=== PATIENT | female | born 1950 | race Caucasian/White ===

== ENCOUNTER 2017-04-23 11:26 | Outpatient (CLI) | payer MEDICARE, OTHER ==
--- NOTE | 2017-04-23 19:14 | CT Report ---
CT BRAIN WITHOUT CONTRAST: 04/23/2017 CLINICAL INDICATION: Vertigo, nausea. TECHNIQUE: Axial CT images of the brain were obtained without intravenous contrast. No previous CT is available for comparison. FINDINGS: The ventricles and sulci are normal in size, shape, and configuration. The basilar cister ns are patent. There is no evidence of intracranial hemorrhage, mass effect, or midline shift. The visualized orbital contents and paranasal sinuses are unremarkable. IMPRESSION: NORMAL CT OF THE BRAIN WITHOUT CONTRAST. In accordance with CT protocol optimization, one or more of the following dose reduction techniques w ere utilized for this exam: automated exposure control, adjustment of mA and/or KV based on patient size, or use of iterative reconstructive technique. JOB #: [id number] EXT JOB #:[id number]
--- NOTE | 2017-04-24 13:04 | Ultrasound Report ---
CAROTID DUPLEX: 04/23/2017 CLINICAL INDICATION: Nausea. TECHNIQUE: Real-time sonographic vascular imaging was performed by the food service through the carotid arteries utilizing both color-flow and Doppler spectral analysis. Multiple canvas products sales representative static images were saved for review. Vessel PSV cm/sec 2D Plaque Estimate % EDV cm/sec ICA/CCA PSV % Stenosis RCCA Prox 78 -- RCCA Dist 71 21 -- RECA 88 -- RT BULB 62 -- 21 0.87 LORENZA Prox 85 -- 30 1.20 LORENZA Mid 72 -- 32 1.01 LORENZA Dist 107 -- 40 1.51 RVA 43 RVA flow direction: Antegrade. Vessel PSV cm/sec 2D Plaque Estimate % EDV cm/sec ICA/CCA PSV % Stenosis LCCA Prox 120 -- LCCA Dist 82 24 -- LECA 83 -- LFT BULB 78 -- 21 0.95 LICA Prox 79 -- 29 0.96 LICA Mid 106 -- 40 1.29 LICA Dist 108 -- 47 1.32 LVA 50 LVA flow direction: Antegrade. Velocity criteria are extrapolated from diameter data as defined by the Society of Radiologists in Ultrasound Consensus Conference Radiology 2003; 229; 340-346. Degree of Stenosis % ICA PSV cm/sec Plaque Estimate % ICA/CCA RSV Ratio ICA EDV cm/sec Normal < 125 None < 2.0 < 40 <50 < 125 < 50 < 2.0 < 40 50-69 125 - 130 >/= 50 2.0 - 4.0 40 - 100 >/= 70 but less than near occlusion > 230 >/= 50 > 4.0 > 100 Near occlusion High, low, or undetectable Visible lumen Variable Variable Total occlusion Undetectable No detectable lumen Not applicable Not applicable FINDINGS RIGHT: There is no plaquing in the right carotid bifurcation or proximal right internal carotid artery. There is no evidence of a hemodynamically significant stenosis. LEFT: There is minimal plaquing in the left carotid bifurcation. There is no evidence of a hemodynamically significant carotid stenosis. The vertebral arteries demonstrate antegrade flow bilaterally. IMPRESSION: MINIMAL PLAQUING. NO EVIDENCE OF A HEMODYNAMICALLY SIGNIFICANT CAROTID STENOSIS. MTDD
== END 2017-04-23 11:27 | disposition home or self-care (01) ==
LOC: DI 11:26
PROVIDERS: ATTEND Nurse Practitioner Family
DX: R42 Dizziness and giddiness (principal); R11.0 Nausea
CPT/HCPCS: 70450; 93880

== ENCOUNTER 2018-05-22 13:30 | Outpatient (CLI) | payer MEDICARE, OTHER ==
--- NOTE | 2018-05-25 14:19 | Mammography Report ---
Reason: SCREENING MAMMO Procedure Date: 05/22/2018 Accession Number: [id number] / [id number] Procedure: SAAD - Screening Mammo Dig Bilat CPT Code: FULL RESULT: EXAM: Screening Mammo Dig Bilat DATE: 05/22/2018 2:16 PM CLINICAL HISTORY: Routine screening TECHNIQUE: Bilateral CC and MLO views were obtained. COMPARISON: 11/08/2015, 10/23/2015 FINDINGS: There are scattered fibroglandular densities. There is no interval change. Stable asymmetric density superior right breast MLO projection. No suspicious masses, clustered microcalcifications, or regions of architectural distortion are identified. IMPRESSION: Benign findings RECOMMENDATION: Routine annual screening unless otherwise clinically indicated. BIRADS CATEGORY 2: Benign findings STANDARD QUALIFYING STATEMENTS: 1. This examination was reviewed with the aid of Computer-Aided Detection (CAD). 2. A negative or benign imaging report should not delay biopsy if clinically suspicious findings are present. Consider surgical consultation if warrented. More than 5% of cancers are not identified by imaging. 3. Dense breasts may obscure an underlying neoplasm.
== END 2018-05-22 13:31 | disposition home or self-care (01) ==
LOC: DI 13:30
PROVIDERS: ATTEND Nurse Practitioner Family
DX: Z12.31 Encounter for screening mammogram for malignant neoplasm of breast (principal)
CPT/HCPCS: 77067

== ENCOUNTER 2018-06-14 09:07 | Outpatient (CLI) | payer MEDICARE, OTHER | END 2018-06-14 09:08 | disposition critical access hospital (66) | LOC: EMS 09:07 | PROVIDERS: ATTEND Surgery | DX: R42 Dizziness and giddiness (principal); R09.89 Other specified symptoms and signs involving the circulatory and respiratory systems | CPT/HCPCS: A0425; A0427 ==

== ENCOUNTER 2018-06-14 09:44 | Observation (INO) | payer MEDICARE, OTHER ==
[2018-06-14] MEDS ORDERED: SODIUM CHLORIDE 0.9% 1,000 ML IV ONE (10:11)
--- NOTE | 2018-06-14 10:12 | ED Physician Documentation ---
History of Present Illness - Stated complaint Stated Complaint: DIZZY - Chief complaint Chief Complaint: Cardiac - Additonal information Additional information: 68-year-old female was brought to the emergency department for evaluation of a episode of dizziness which occurred today while at [employer]. The patient reports significant lightheadedness which started suddenly while standing. The patient's noticed that she was very pale appearing and diaphoretic. The patient denies chest pain or palpitations during the event. No actual syncopal episode but the patient felt like she was near syncope. EMS was called. EMS found that the patient was having a low heart rate with long pauses. Presently, the patient feels closer to her baseline and her dizziness has greatly improved. No triggering factors. Symptoms initially were described as severe and currently are mild. No other associated symptoms. Symptoms improved on their own Review of Systems Constitutional: denies: Fever Eyes: denies: Discharge Ears: denies: Ear pain, Drainage/discharge Nose: denies: Congestion Throat: denies: Sore throat Cardiac: denies: Chest pain / pressure, Palpitations, Pedal edema Respiratory: denies: Cough GI: denies: Abdominal Pain, Nausea, Vomiting : denies: Dysuria Skin: denies: Rash Musculoskeletal: denies: Neck pain Neurologic: reports: Near syncope. 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 INTRANET: Hysterectomy - Present Medications Home Medications: Ambulatory Orders Medication Instructions Recorded Confirmed Loratadine [Claritin] 10 mg PO 06/14/18 - Allergies Allergies/Adverse Reactions: Allergies Allergy/AdvReac Type Severity Reaction Status Date / Time acetaminophen [From Vicodin] AdvReac Nausea Verified 06/14/18 10:17 hydrocodone [From Vicodin] AdvReac Nausea Verified 06/14/18 10:17 - Social History Does the pt smoke?: No Smoking Status: Never smoker Does the pt drink ETOH?: No Does the pt have substance abuse?: No - Immunizations Immunizations are current?: Yes PD ED PE NORMAL - General General: Alert and oriented X 3, No acute distress - HEENT HEENT: Atraumatic, PERRL, EOMI, Ears normal - Neck Neck: Supple, no meningeal sign - Cardiac Cardiac: RRR, Strong equal pulses - Respiratory Respiratory: No respiratory distress - Abdomen Abdomen: Normal bowel sounds, Soft, Non tender - Derm Derm: Normal color - Extremities Extremities: No deformity, Normal ROM s pain, No edema - Neuro Neuro: Alert and oriented X 3, 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 2-12 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, No motor deficit, Normal speech - Psych Psych: Normal affect Results - Vitals Vitals: Vital Signs - 24 hr 06/14/18 06/14/18 06/14/18 09:47 09:49 10:00 Temperature 36.5 C Heart Rate 51 L Heart Rate [ 58 L Sitting] Heart Rate [ 57 L Standing] Heart Rate [ 54 L Supine] Respiratory 16 Rate Blood Pressure 117/93 H Blood Pressure 115/58 L [Sitting] Blood Pressure 112/71 [Standing] Blood Pressure 107/59 L [Supine] O2 Saturation 97 06/14/18 11:26 Temperature Heart Rate 58 L Heart Rate [ Sitting] Heart Rate [ Standing] Heart Rate [ Supine] Respiratory 17 Rate Blood Pressure 116/59 L Blood Pressure [Sitting] Blood Pressure [Standing] Blood Pressure [Supine] O2 Saturation 98 Oxygen O2 Source Room air - EKG (time done) 09:55 Rate: Rate (enter#) Rhythm: Sinus bradycardia [place]: Normal Intervals: Normal NC, QRS normal QRS: Normal Ischemia: Non specific changes - Labs Labs: Laboratory Tests 06/14/18 06/14/18 06/14/18 10:25 10:25 10:25 WBC 9.2 RBC 4.25 Hgb 13.6 Hct 39.2 MCV 92.3 MCH 32.0 H MCHC 34.6 RDW 13.1 Plt Count 184 MPV 8.5 Neut # (Auto) 7.8 H Lymph # (Auto) 0.9 L [place] # (Auto) 0.4 Eos # (Auto) 0.1 Baso # (Auto) 0.0 Absolute Nucleated RBC 0.00 Nucleated RBC % 0.0 Sodium 140 Potassium 4.1 Chloride 107 Carbon Dioxide 26 Anion Gap 7.0 BUN 16 Creatinine 0.5 Estimated GFR (MDRD) 123 Glucose 103 H Calcium 8.4 L Total Bilirubin 0.8 AST 23 ALT 25 Alkaline Phosphatase 57 Troponin I < 0.04 Total Protein 6.4 L Albumin 3.8 Globulin 2.6 Albumin/Globulin Ratio 1.5 Lipase 43 Urine Color Urine Clarity Urine pH Ur Specific [place] Urine Protein Urine Glucose (UA) Urine Ketones Urine Occult Blood Urine Nitrite Urine Bilirubin Urine Urobilinogen Ur Leukocyte Esterase Ur Microscopic Review Urine Culture Comments Salicylates < 6.0 Urine Opiates Screen Ur Oxycodone Screen Urine Methadone Screen Ur Propoxyphene Screen Acetaminophen < 10 L Ur Barbiturates Screen Ur Tricyclics Screen Ur Phencyclidine Scrn Ur Amphetamine Screen U Methamphetamines Scrn U Benzodiazepines Scrn Urine Cocaine Screen U Cannabinoids Screen Ethyl Alcohol < 5.0 06/14/18 11:20 WBC RBC Hgb Hct MCV MCH MCHC RDW Plt Count MPV Neut # (Auto) Lymph # (Auto) [place] # (Auto) Eos # (Auto) Baso # (Auto) Absolute Nucleated RBC Nucleated RBC % Sodium Potassium Chloride Carbon Dioxide Anion Gap BUN Creatinine Estimated GFR (MDRD) Glucose Calcium Total Bilirubin AST ALT Alkaline Phosphatase Troponin I Total Protein Albumin Globulin Albumin/Globulin Ratio Lipase Urine Color YELLOW Urine Clarity CLEAR Urine pH 6.5 Ur Specific [place] 1.015 Urine Protein NEGATIVE Urine Glucose (UA) NEGATIVE Urine Ketones NEGATIVE Urine Occult Blood NEGATIVE Urine Nitrite NEGATIVE Urine Bilirubin NEGATIVE Urine Urobilinogen 0.2 (NORMAL) Ur Leukocyte Esterase NEGATIVE Ur Microscopic Review NOT INDICATED Urine Culture Comments NOT INDICATED Salicylates Urine Opiates Screen NEGATIVE Ur Oxycodone Screen NEGATIVE Urine Methadone Screen NEGATIVE Ur Propoxyphene Screen NEGATIVE Acetaminophen Ur Barbiturates Screen NEGATIVE Ur Tricyclics Screen NEGATIVE Ur Phencyclidine Scrn NEGATIVE Ur Amphetamine Screen NEGATIVE U Methamphetamines Scrn NEGATIVE U Benzodiazepines Scrn NEGATIVE Urine Cocaine Screen NEGATIVE U Cannabinoids Screen NEGATIVE Ethyl Alcohol - Rads (name of study) CXR Radiology: Final report received, See rad report PD MEDICAL DECISION MAKING - ED course ED course: The patient's symptoms are concerning especially since she was found to have a low heart rate during the episode. The patient will require further workup and evaluation in the hospital. The findings and plan were discussed with the patient who understands and agrees to the plan. The case was discussed with the hospitalist Dr. Florence who accepts the patient onto her service. Departure - Departure Disposition: ED Place in Observation Clinical Impression: Near syncope, Bradycardia Condition: Good
[2018-06-14 10:28] LABS: BASOPHILS % (AUTO) 0.3 %; EOSINOPHILS # (AUTO) 0.1 10^3/uL (0.0-0.7); EOSINOPHILS % (AUTO) 0.8 %; HGB - HEMOGLOBIN 13.6 g/dL (12.0-16.0); LYMPHOCYTES # (AUTO) 0.9 10^3/uL (1.5-3.5); LYMPHOCYTES % (AUTO) 9.3 %; MEAN CORPUSCULAR HGB CONC 34.6 g/dL (32.0-36.0); MEAN CORPUSCULAR VOLUME 92.3 fL (81.0-99.0); MEAN PLATELET VOLUME 8.5 fL (7.9-10.8); MONOCYTES # (AUTO) 0.4 10^3/uL (0.0-1.0); MONOCYTES % (AUTO) 4.4 %; NEUTROPHILS # (AUTO) 7.8 10^3/uL (1.5-6.6); NEUTROPHILS % (AUTO) 85.2 %; PLT - PLATELET COUNT 184 10^3/uL (130-450); RED BLOOD COUNT 4.25 10^6/uL (4.20-5.40); RED CELL DISTRIBUTION WIDTH 13.1 % (12.0-15.0); WHITE BLOOD COUNT 9.2 x10^3/uL (4.8-10.8)
[2018-06-14 10:47] LABS: ACETAMINOPHEN < 10 ug/mL (10-30); ALBUMIN 3.8 g/dL (3.2-5.5); ALBUMIN/GLOBULIN RATIO 1.5 (1.0-2.2); ALKALINE PHOSPHATASE 57 IU/L (42-121); ALT ALANINE AMINOTRANSFERASE 25 IU/L (10-60); AST ASPARTATE AMINOTRANSFERASE 23 IU/L (10-42); BILIRUBIN,TOTAL 0.8 mg/dL (0.2-1.0); BUN - BLOOD UREA NITROGEN 16 mg/dL (6-20); CALCIUM 8.4 mg/dL (8.5-10.3); CARBON DIOXIDE - CO2 26 mmol/L (21-32); CHLORIDE 107 mmol/L (101-111); CREATININE 0.5 mg/dL (0.4-1.0); GFR - MDRD 123 (>89); GLUCOSE 103 mg/dL (70-100); LIPASE 43 U/L (22-51); SALICYLATE < 6.0 mg/dL; SODIUM 140 mmol/L (135-145); TOTAL PROTEIN 6.4 g/dL (6.7-8.2)
[2018-06-14 11:25] LABS: MUDS CUTOFF CONCENTRATIONS CUTOFF CONC BELOW:
[2018-06-14 11:27] LABS: BILIRUBIN,URINE NEGATIVE (NEGATIVE); GLUCOSE, URINE (UA) NEGATIVE (NEGATIVE); KETONES,URINE (UA) NEGATIVE (NEGATIVE); LEUKOCYTE ESTERASE, URINE NEGATIVE (NEGATIVE); NITRITE,URINE NEGATIVE (NEGATIVE); OCCULT BLOOD,URINE NEGATIVE (NEGATIVE); PH,URINE 6.5 PH (5.0-7.5); PROTEIN,URINE NEGATIVE (NEGATIVE); UROBILINOGEN,URINE 0.2 (NORMAL) E.U./dL (NORMAL)
[2018-06-14 11:29] LABS: CLARITY,URINE CLEAR (CLEAR)
[2018-06-14 11:37] LABS: AMPHETAMINE SCREEN,URINE NEGATIVE (NEGATIVE); BENZODIAZEPINES SCREEN, URINE NEGATIVE (NEGATIVE); COCAINE SCREEN URINE NEGATIVE (NEGATIVE); METHADONE SCREEN, URINE NEGATIVE (NEGATIVE); METHAMPHETAMINES SCREEN, URINE NEGATIVE (NEGATIVE); OPIATE SCREEN, URINE NEGATIVE (NEGATIVE); OXYCODONE SCREEN, URINE NEGATIVE (NEGATIVE); PROPOXYPHENE SCREEN, URINE NEGATIVE (NEGATIVE); TRICYCLIC ANTIDEPRESSANT,URINE NEGATIVE (NEGATIVE)
--- NOTE | 2018-06-14 11:43 | XRAY Report ---
Reason: dizzy, near syncope Procedure Date: 06/14/2018 Accession Number: [id number] / [id number] Procedure: XR - Chest 2 View X-Ray CPT Code: 70631 FULL RESULT: EXAM: CHEST RADIOGRAPHY EXAM DATE: 06/14/2018 11:04 AM. CLINICAL HISTORY: Dizziness and giddiness. Presyncope. COMPARISON: None. TECHNIQUE: 2 views. FINDINGS: Lungs/Pleura: No focal opacities evident. No pleural effusion. No pneumothorax. Normal volumes. Mediastinum: Heart and mediastinal contours are unremarkable. Other: None. IMPRESSION: Normal 2-view chest radiography. RADIA
[2018-06-14] MEDS ORDERED: SODIUM CHLORIDE FLUSH 0.9% 10 ML SYRINGE IVP PRN (12:01)
[2018-06-14] MEDS ORDERED: ONDANSETRON ODT 4 MG TABLET TL PRN (12:01)
[2018-06-14] MEDS ORDERED: ACETAMINOPHEN 325 MG TABLET PO PRN (12:01)
[2018-06-14] MEDS ORDERED: ONDANSETRON 4 MG/2 ML VIAL IVP PRN (12:01)
--- NOTE | 2018-06-14 12:06 | HISTORY & PHYSICAL EXAMINATION ---
Chief Complaint - Chief Complaint Chief Complaint: Near syncope with bradycardia and diaphoresis History of Present Illness - Admitted From Admitted From:: Home>ER - History [facility]bt[facility] History obtained from: Patient and medical records Exam Limitations: none. - History of Present Illness HPI Comment/Other: She is an otherwise healthy white female who takes Claritin for allergies and vertigo. But today while standing in [employer], she suddenly became lightheaded, diaphoretic. This is different from her vertigo where her head spins. She almost passed out. She has only been standing a few minutes. It's a [employer] service so you stand, sit , kneel (ie change position) every few minutes. She has not had any new illness. No GI complaints. No stress. EMS was called and her heart rate was in the 30s with long sinus pauses. She was sinus rhythm. Since being in the emergency room her heart rate is 51-58 with sinus rhythm. Blood pressure is 117/93. Oxygenating well on room air. She is now brought in for observation to monitor her heart rate, monitor for arrhythmia, and get an echocardiogram. There is no family history of arrhythmias. She does not take any medications [id number] other than the Claritin. In reviewing her blood pressure from her primary care provider office in 2015 she was 125/59. Pulse rate was from 60-74.She just had a well woman exam in May with Gina Johnson. Everything was fine then. History - Past Medical History Cardiovascular: reports: None Respiratory: reports: None Neuro: reports: None Endocrine/Autoimmune: reports: None GI: reports: Colon polyps (Colonoscopy done in 2007, 2015. With October 2015 colonoscopy normal colon, internal hemorrhoids.), Other (Abnormal liver function studies in August 2015 resulted in abdominal ultrasound. Fatty liver.) CHIEF LOAD DISPATCHER: reports: Other (Fibroids and menorrhagia resulted in total abdominal hysterectomy with bilateral salpingooophorectomy 1996) : reports: None HEENT: reports: None Psych: reports: None Musculoskeletal: reports: Osteoarthritis (Left knee), Other (Left patellar bursitis March 2016) Derm: reports: Herpes zoster (Age 21) MRSA Hx?: No - Past Surgical History General: reports: Appendectomy (Age 21), Colonoscopy (December 17, 2007 with 1 small polyp in cecum. No diverticulosis. Done by Jimenez HEBERT) /CHIEF LOAD DISPATCHER: reports: Hysterectomy - Family & Social History Family History Comment/Other: Father at age 65 of liver cancer. He was a smoker. Mother at age 66 of emphysema. One brother has had bladder cancer and melanoma. Older sister is healthy. Twin brother is healthy Living arrangement: At home Living Situation: With spouse/s.o. Social History Notes: Moved to [facility] approximately 2014. Was living in [place] and [place] prior to that. Her was an executive with [employer] and those were the areas he was working in. They decided to move to a place that had access to water, bloating, airplane, and they love [facility].They have been for 42 years She has 2 sons in [place] and [place]. Grandchildren [place]. 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 She keeps active with walking, volunteering at her jehovah's witness and [employer]. She denies any history of smoking. She has no history of alcohol abuse. - Substance History Use: Uses substance without health or social issues: NONE Abuse: Recurrent use of substance despite neg consequences: NONE Dependence: Experiences withdrawal or developed tolerances: NONE - POLST Patient has POLST: No POLST Status: Full Code Meds/Allgy - Home Medications Home Medications: Ambulatory Orders Medication Instructions Recorded Confirmed Loratadine [Claritin] 10 mg PO DAILY 06/14/18 06/14/18 - Allergies Allergies/Adverse Reactions: Allergies Allergy/AdvReac Type Severity Reaction Status Date / Time acetaminophen [From Vicodin] AdvReac Nausea Verified 06/14/18 10:17 hydrocodone [From Vicodin] AdvReac Nausea Verified 06/14/18 10:17 Review of Systems - Constitutional Constitutional: denies: Fatigue, Fever, Chills, Malaise, Weakness, Poor appetite - Eyes Eyes: denies: Pain, Irritation, Amaurosis, Vision loss - Ears, Nose & Throat Ears, Nose & Throat: reports: Vertigo. denies: Ear pain, Hearing loss, Hearing aids, Nasal obstruction, Nasal congestion, Postnasal drainage, Dentures, Sore throat - Cardiovascular Cariovascular: reports: Lightheadedness. denies: Irregular heart rate, Palpitations, Chest pain, Edema, Syncope, Exertional dyspnea, Decr. exercise tolerance - Respiratory Respiratory: denies: Cough, Sputum production, Wheezing, Snoring, Hemoptysis, Orthopnea - Gastrointestinal Gastrointestinal: denies: Abdominal pain, Abdominal distention, Constipation, Diarrhea, Change in bowel habits - Genitourinary Genitourinary: denies: Dysuria, Frequency, Urgency, Hematuria, Incontinence - Musculoskeletal Musculoskeletal: denies: Muscle pain, Back pain, Muscle aches, Gout - Integumentary Integumentary: denies: Rash, Pruritis - Neurological Neurological: denies: General weakness, Focal weakness, Headache, Numbness, Memory problems, Pre-existing deficit - Psychiatric Psychiatric: denies: Depression, Anxiety, Suicidal - Endocrine Endocrine: denies: Polyuria, Polydypsia, Polyphagia - Hematologic/Lymphatic Hematologic/Lymphatic: denies: Anemia, Bruising Prior Level of Functionality: Completely independent white female who still drives a car, pays bills, cleans house, and is able to complete her activities of daily living Exam - Vital Signs Reviewed Vital Signs: Yes Vital Signs: Vital Signs x48h Temp Pulse Pulse Pulse Pulse Resp BP 06/14/18 11:26 58 L 17 116/59 L 06/14/18 10:00 58 L 57 L 54 L 06/14/18 09:49 117/93 H 06/14/18 09:47 36.5 C 51 L 16 BP BP BP Pulse Ox 06/14/18 11:26 98 06/14/18 10:00 115/58 L 112/71 107/59 L 06/14/18 09:49 06/14/18 09:47 97 - Physical Exam General Appearance: positive: No acute distress, Alert, Other (slender, pleasant middle aged white female) Eyes Bilateral: positive: PERRL, EOMI ENT: positive: Pharynx nml Neck: positive: No JVD. negative: Stiff neck, Carotid bruit Respiratory: positive: Chest non-tender. negative: Wheezes, Rales, Rhonchi Cardiovascular: positive: Regular rate & rhythm, Bradycardia (with up to 2.3 second sinus pauses on tele). negative: Systolic murmur, Gallop/S4, Friction rub Peripheral Pulses: positive: 2+ Abdomen: positive: Non-tender, No organomegaly, Nml bowel sounds, No distention Skin: positive: Warm, Dry Extremities: positive: Non-tender, Full ROM, No pedal edema Neurologic/Psychiatric: positive: Oriented x3, CN's nml (2-12), Motor nml, Sensation nml, Mood/affect nml Reflexes: Bicep (R): 1+, Bicep (L): 1+, Knee (R): 1+, Knee (L): 1+ Babinski Reflex: Right: Up, Left: Up Conclusion/Plan - Problem List (1) Bradycardia Conclusion/Plan: Her description is that of possible vasovagal reaction vs. arrhythmia. Tele confirms the bradycardia and slight sinus pauses Plan: Place in observation. Placed on telemetry Echocardiogram Repeat cardiac enzymes in 6 hours (2) Near syncope Conclusion/Plan: Presumed to be secondary from her bradycardia. Workup as above. - Lab Results Fish Bones: 06/14/18 10:25 06/14/18 10:25 - Diagnostic Imaging Results Diagnostic Imaging Results: positive: Final report reviewed Diagnostic Imaging Results Comments: CHEST RADIOGRAPHY EXAM DATE: 06/14/2018 11:04 AM. CLINICAL HISTORY: Dizziness and giddiness. Presyncope. COMPARISON: None. TECHNIQUE: 2 views. FINDINGS: Lungs/Pleura: No focal opacities evident. No pleural effusion. No pneumothorax. Normal volumes. Mediastinum: Heart and mediastinal contours are unremarkable. Other: None. IMPRESSION: Normal 2-view chest radiography. - EKG Results EKG Interpreted Independently: No EKG Comparison: Old EKG unavailable Core Measures - Anticipated LOS I expect patient to be DC'd or transferred within 96 hours.: Yes - DVT/VTE - Prophylaxis VTE/DVT Device ordered at admit?: Yes
[2018-06-14] MEDS: SODIUM CHLORIDE FLUSH 0.9% 10 ML SYRINGE IVP SCH (15:54)
[2018-06-15] MEDS: SODIUM CHLORIDE FLUSH 0.9% 10 ML SYRINGE IVP SCH ×2 (01:36→10:08)
--- NOTE | 2018-06-15 07:52 | Discharge Plan ---
Discharge Plan Disposition: 01 Home, Self Care Condition: Good Diet: Regular Activity Restrictions: No Restrictions Shower Restrictions: No Driving Restrictions: No Instruction Topics: Syncope, Dehydration, Bradycardia Additional Instructions or Follow Up instructions: You were placed in the hospital because of an episode of near fainting while at [employer]. You describe standing, kneeling, sitting as part of a [employer] service. You had not been standing for 30 minutes or a prolonged time. You were suddenly overcome with lightheadedness, sweatiness, and almost passed out. EMS found your heart rate to be in the 30s. When you were in the emergency room your heart rate was in the 50s. EKG is definitely showing that you have a very slow heart rate at times. But as you were observed overnight your heart rate has come up into the 60s and even into the 90s. While we sometimes attribute benign vasovagal symptoms to people who are is young and healthy as you, you should see your primary care provider in follow-up and be referred to cardiology for a second opinion. Dr. Regina Muhammad is accepting new patients in the [facility] office. You did have an echocardiogram. Those are studies that are read at [place] [facility], and they have not read the echocardiogram. That is pending and will not be available until at least tomorrow. Blood tests for potassium were normal. Blood test to see if you are having a heart attack were normal. No Smoking: If you smoke, Please STOP! Call for help. Follow-up with: Annemarie Johnson ARNP [Primary Care Provider] -
[2018-06-15 08:36] VITALS: BP 114/37
[2018-06-15] MEDS ORDERED: POLYETHYLENE GLYCOL 3350 17 GM PACKET PO SCH (09:00)
--- NOTE | 2018-06-15 11:21 | DISCHARGE SUMMARY ---
Physician: Sheri Florence MD DATE OF ADMISSION: 06/14/2018 DATE OF DISCHARGE: 06/15/2018 DISCHARGE DIAGNOSES 1. Bradycardia. 2. Near syncope. PRINCIPAL PROCEDURES 1. Echocardiogram pending results at the time of discharge. 2. Continuous telemetry monitoring showing a sinus rhythm. Occasional pauses up to 2.3 seconds. 3. Troponins negative x2 sets. She is a 68-year-old healthy female. The only drug she takes is Claritin for allergies. She last saw her primary care provider for her woman's annual exam in May. She really does regard herself as healthy and is very physically active and has no major medical issues on review of systems. She was at [employer]. She states a [employer] service where you are kneeling, sitting, standing. Various times throughout the service over the course of 45 minutes. At no point do you stand for very long. Nevertheless, she became increasingly lightheaded, diaphoretic, and almost passed out at [employer] services. EMS was called, and she was bradycardic to the 30s. Brought to the emergency room where she was now in the 50s. She was placed under observation for the bradycardia. Again, echocardiogram was pending at the time of discharge and needs to be reviewed. However, there is no aortic stenosis murmur. Telemetry shows sinus bradycardia with occasional 2.3 second pauses. Overnight, she would fall asleep and go into the 50s, but for the rest of the time she was in the 70s and even up to 90 once. She was asymptomatic. [place] completely normal. We have recommended that she follow up with her primary care provider in the next 1-2 weeks. That she follow up with electrophysiology specialist. Echocardiogram will need to be reviewed at that time. She was given the name of [facility], Dr. Muhammad in reference. TD: 06/15/2018 10:48 SHASHA
== END 2018-06-15 10:10 | disposition home or self-care (01) ==
LOC: EDBD → EDUNIT# → ED 09:44 → MS2 12:01
PROVIDERS: ADMIT Specialist; ATTEND Specialist
DX: R00.1 Bradycardia, unspecified (principal)
CPT/HCPCS: 36415; 71046; 80053; 81003; 83690; 84484; 85025; 93005; 93306; 96360; 99284; 99285; G0378; 80306; 80307; 80320; 80329; 81001; 87086

== ENCOUNTER 2020-10-02 14:29 | Outpatient (CLI) | payer MEDICARE, OTHER ==
--- NOTE | 2020-10-02 15:20 | DEXA Report ---
PROCEDURE: Dexa Spine and/or Hip INDICATIONS: MENOPAUSAL STATE TECHNIQUE: Dual energy x-ray absorptiometry (DXA) was performed on a [employer] System. Regions measur ed are the AP Spine, femoral neck, and if needed forearm. COMPARISON: None. FINDINGS: Lumbar Spine: Bone Mineral Density 0.991 g/cm/cm,T score -1.6, osteopenia Left Hip: Bone Mineral Density 0.861 g/cm/cm,T score -1.2, osteopenia Left Femoral Neck: Bone Mineral Density 0.849 g/cm/cm, T score -1.4, osteopenia (T score greater or equal to -1.0: NORMAL) (T score from -1.1 to -2.4: OSTEOPENIA) (T score less than or equal to -2.5 to: OSTEOPOROSIS) Impression: 1. Osteopenia raises the patient's 10 year fracture risk. Patients with diagnosis of osteoporosis or osteopenia should have regular bone mineral density assess ment. For those eligible for Medicare, routine testing is allowed once every 2 years. Testing frequ ency can be increased for patients who have rapidly progressing disease or for those who are receivin g medical therapy to restore bone mass. Reviewed by: Kanika Clemente MD on 10/02/2020 3:19 PM PST Approved by: Kanika Clemente MD on 10/02/2020 3:19 PM PST Station ID: [id number]
== END 2020-10-02 14:30 | disposition home or self-care (01) ==
LOC: DI 14:29
PROVIDERS: ATTEND Physician Assistant
DX: M85.89 Other specified disorders of bone density and structure, multiple sites (principal); Z78.0 Asymptomatic menopausal state

== ENCOUNTER 2020-10-31 07:41 | Outpatient (CLI) | payer MEDICARE, OTHER ==
--- NOTE | 2020-11-01 13:41 | Mammography Report ---
BILATERAL DIGITAL SCREENING MAMMOGRAM 3D/2D: 10/31/2020 CLINICAL: Routine screening. Comparison is made to exams dated: 05/22/2018 mammogram, 11/08/2015 mammogram, and 10/23/2015 mammogra m - [facility]. There are scattered fibroglandular elements in both breasts. No significant masses, calcifications, or other findings are seen in either breast. There has been no significant interval change. IMPRESSION: NEGATIVE There is no mammographic evidence of malignancy. A 1 year screening mammogram is recommended. This exam was interpreted at Station ID: [id number]. NOTE: For mammograms, a report in lay terms will be sent to the patient. Approximately 15% of breast malignancies will not be visualized mammographically. In the management of a palpable breast mass, a negative mammogram must not discourage biopsy of a clinically suspicious lesion. Electronically Signed By: Davidson Mclaughlin M.D. [email or web address]/penrad:10/31/2020 09:45:57 ACR BI-RADS Category 1: Negative 3341F PARENCHYMAL PATTERN: (A) - The breast(s) demonstrate(s) scattered fibroglandular densities. BI-RADS CATEGORY: (1) - 1 RECOMMENDATION: (ANNUAL) - Recommend routine annual screening mammography. [id number] 1 year screening LATERALITY: (B)
== END 2020-10-31 07:42 | disposition home or self-care (01) ==
LOC: DI.S 07:41
PROVIDERS: ATTEND Physician Assistant
DX: Z12.31 Encounter for screening mammogram for malignant neoplasm of breast (principal)

== ENCOUNTER 2021-04-17 13:25 | Outpatient (CLI) | payer MEDICARE, OTHER ==
--- NOTE | 2021-04-17 15:38 | XRAY Report ---
PROCEDURE: Hand 2 View RT INDICATIONS: M79.641 RT HAND PAIN TECHNIQUE: 2 views of the hand(s) acquired. COMPARISON: None FINDINGS: Bones: No fractures or dislocations. No suspicious bony lesions. Scattered IP and first CMC degene rative narrowing is present. No erosions. Soft tissues: No suspicious soft tissue calcifications. IMPRESSION: First CMC and scattered IP degenerative narrowing most suggestive of arthritis. Reviewed by: Jody Raman MD on 04/17/2021 3:37 PM PDT Approved by: Jody Raman MD on 04/17/2021 3:37 PM PDT Station ID: [id number]
== END 2021-04-17 13:26 | disposition home or self-care (01) ==
LOC: DI.S 13:25
PROVIDERS: ATTEND Nurse Practitioner Family
DX: M79.641 Pain in right hand (principal)

== ENCOUNTER 2021-08-26 15:30 | Outpatient (CLI) | payer MEDICARE, OTHER | END 2021-08-26 23:59 | disposition home or self-care (01) | LOC: LAB.S 15:30 | PROVIDERS: ATTEND Physician Assistant | DX: N39.0 Urinary tract infection, site not specified (principal) | CPT/HCPCS: 87086 ==

== ENCOUNTER 2022-03-11 11:34 | Outpatient (CLI) | payer MEDICARE, OTHER ==
--- NOTE | 2022-03-11 14:59 | XRAY Report ---
PROCEDURE: Ankle 3 View RT INDICATIONS: RIGHT ARCHILLES TENDONITIS TECHNIQUE: 3 views of the ankle were acquired. COMPARISON: None FINDINGS: Bones: No fractures or dislocations. Ankle mortise is normally aligned. No suspicious bony lesions . Soft tissues: No tibiotalar joint effusion. Achilles tendon appears thickened. IMPRESSION: Thickening of the Achilles tendon, suggestive of tendinopathy or partial thickness tearin g. Further assessment with MRI is recommended. Reviewed by: Dusty Sierra MD on 03/11/2022 2:58 PM PDT Approved by: Dusty Sierra MD on 03/11/2022 2:58 PM PDT Station ID: [id number]
--- NOTE | 2022-03-11 16:46 | XRAY Report ---
PROCEDURE: Foot 3 View RT INDICATIONS: PAIN IN RIGHT HEEL TECHNIQUE: 3 views of the foot were acquired. COMPARISON: None FINDINGS: Bones: No fractures or dislocations. No suspicious bony lesions. Mild first MTP joint osteoarthriti s. Moderate-sized plantar calcaneal bone spur. Soft tissues: No tibiotalar joint effusion. Achilles tendon appears normal. IMPRESSION: No acute osseous lesion. If symptoms and/or clinical concern for pathology persists, further assessme nt with repeat plain film radiographs (7-10 days) or advanced imaging (CT, MR, bone scan) should be c onsidered. Calcaneal bone spur. Reviewed by: Marlen Marin MD, PhD on 03/11/2022 4:45 PM PDT Approved by: Marlen Marin MD, PhD on 03/11/2022 4:45 PM PDT Station ID: [id number]
== END 2022-03-11 11:35 | disposition home or self-care (01) ==
LOC: DI.S 11:34
PROVIDERS: ATTEND Nurse Practitioner Family
DX: M76.61 Achilles tendinitis, right leg (principal); M77.31 Calcaneal spur, right foot; M79.671 Pain in right foot